=== PATIENT | female | born 1995 | race Caucasian/White ===

== ENCOUNTER 2018-11-20 08:35 | Emergency (ER) | payer BC ==
--- NOTE | 2018-11-20 09:41 | UC ---
Complaint Female HPI - HPI Summary HPI Summary: PATIENT IS HERE VISITING FROM [place]. YESTERDAY STARTED WITH LOW BACK PAIN , NAUSEA AND HAD A COUPLE EPISODES OF VOMITING. SHE HAS DYSURIA, FREQUENCY AND URGENCY. HAS A HISTORY OF RECURRENT UTI. NO FEVER BUT HAS CHILLS. - History Of Current Complaint Chief Complaint: [facility] Stated Complaint: URINARY ISSUE Time Seen by Provider: 11/20/18 08:41 Hx Obtained From: Patient Hx Last Menstrual Period: iud Onset/Duration: Gradual Onset, Lasting Days - 1 DAY, Still Present Severity Initially: Moderate Severity Currently: Moderate Pain Intensity: 7 Pain Scale Used: 0-10 Numeric Character: Burning Aggravating Factor(s): Urination Alleviating Factor(s): Nothing Associated Signs And Symptoms: Positive: Back Pain, Nausea, Vomiting(# Of Episodes =) - Allergies/Home Medications Allergies/Adverse Reactions: Allergies Allergy/AdvReac Type Severity Reaction Status Date / Time Penicillins Allergy GI Upset Verified 11/20/18 08:50 Home Medications: Home Medications Acne Medacine 11/20/18 [History] PMH/Surg Hx/FS Hx/Imm Hx Previously Healthy: Yes - Surgical History Surgical History: Yes Surgery Procedure, Year, and Place: 5x rt knee, nose repair - Family History Known Family History: Positive: Non-Contributory - Social History Alcohol Use: Weekly Substance Use Type: None Smoking Status (MU): Light Every Day Tobacco Smoker Type: Cigarettes Review of Systems All Other Systems Reviewed And Are Negative: Yes Constitutional: Positive: Chills Respiratory: Positive: Negative Cardiovascular: Positive: Negative Gastrointestinal: Positive: Abdominal Pain, Vomiting, Nausea. Negative: Diarrhea Genitourinary: Positive: Dysuria, Frequency, Urgency Physical Exam Triage Information Reviewed: Yes Appearance: Well-Appearing, No Pain Distress, Well-Nourished Vital Signs: Initial Vital Signs Temp 99.4 F 11/20/18 08:46 Pulse 91 11/20/18 08:46 Resp 18 11/20/18 08:46 BP 118/78 11/20/18 08:46 Pulse Ox 100 11/20/18 08:46 Laboratory Tests 11/20/18 09:09 POC Urine Color Patricia POC Urine Clarity Slightly cloudy POC Urine pH 6.0 POC Ur Specif Martin 1.025 POC Urine Protein 1+ A POC Ur Glucose (UA) Negative POC Urine Ketones Negative POC Urine Blood 3+ A POC Urine Nitrite Negative POC Urine Bilirubin 1+ A POC Urine Urobilinogen 0.2 POC U Leukocyte Esteras Trace A Vital Signs Reviewed: Yes Eyes: Positive: Conjunctiva Clear ENT: Positive: Hearing grossly normal Neck: Positive: Supple Respiratory: Positive: No respiratory distress, No accessory muscle use Cardiovascular: Positive: Pulses Normal Abdomen Description: Positive: Soft, Other: - SUPRAPUBIC TENDERESS. Negative: CVA Tenderness (R), CVA Tenderness (L), Distended, Guarding Musculoskeletal: Positive: No Edema Neurological: Positive: Alert Psychological: Positive: Age Appropriate Behavior Skin: Negative: Rashes Complaint Female Dx - Differential Dx/Diagnosis Provider Diagnosis: UTI (urinary tract infection) Discharge - Sign-Out/Discharge Documenting (check all that apply): Patient Departure All imaging exams completed and their final reports reviewed: No Studies - Discharge Plan Condition: Stable Disposition: HOME Prescriptions: Ondansetron ODT TAB* [Zofran Odt TAB*] 4 mg PO Q6H PRN #20 tab.odt PRN Reason: Nausea/Vomiting Phenazopyridine TAB* [Pyridium TAB*] 200 mg PO TID #6 tab Sulfamethox/Trimethoprim DS* [Bactrim DS 800/160 TAB*] 1 tab PO BID #14 tab Patient Education Materials: Urinary Tract Infection in Women (ED) Referrals: No Primary Care Phys,NOPCP [Primary Care Provider] - Additional Instructions: YOUR URINE TEST TODAY WAS POSITIVE FOR UTI. GIVEN YOUR CONSTELLATION OF SYMPTOMS INCLUDING SUBJECTIVE FEVER, CHILLS, NAUSEA I'M CONCERNED YOU MAY BE DEVELOPING A KIDNEY INFECTION.URINE HAS BEEN SENT FOR ROUTINE CULTURE AND TESTING FOR UREAPLASMA/MYCOPLASMA. WE WIULL CALL YOU IF YOUR TREATMENT NEEDS TO BE MODIFIED. TAKE THE ANTIBIOTICS TWICE DAILY PRESCRIBED. LOW THRESHOLD FOR GOING TO THE EMERGENCY ROOM IF YOU DEVELOP WORSENING SYMPTOMS. CONSIDER FOLLOWING UP WITH A UROLOGIST BACK HOME FOR EVALUATION OF YOUR RECURRENT UTI/ KIDNEY INFECTIONS. STAY WELL HYDRATED. ZOFRAN FOR NAUSEA. - Billing Disposition and Condition Condition: STABLE Disposition: Home
[2018-11-22 14:21] LABS: Ureaplasma Source URINE; Ureaplasma parvum PCR Negative; Ureaplasma urealyticum PCR Negative
[2018-11-22 14:23] LABS: Mycoplasma hominis Result Negative; Mycoplasma hominis Source URINE
== END 2018-11-20 09:55 | disposition home or self-care (01) ==
LOC: UCEAST 08:35
DX: N39.0 Urinary tract infection, site not specified (principal); Z87.440 Personal history of urinary (tract) infections; M54.5 Low back pain; R11.2 Nausea with vomiting, unspecified; Z88.0 Allergy status to penicillin; F17.210 Nicotine dependence, cigarettes, uncomplicated
CPT/HCPCS: 81003; 87086; 87798; 99212; G0463